=== PATIENT | female | born 1985 | race African-American/Black ===

== ENCOUNTER 2017-03-13 12:19 | Emergency (ER) | payer MEDICAID, OTHER ==
[~2017-03-13] VITALS: Ht 167.6 cm; Wt 75.0 kg
[~2017-03-13 12:19] MED LIST: ALBU8I INH; BUSP10 PO; FLOV220A IN; METR-1 PO; SERO150T PO
[2017-03-13 12:21] VITALS: BP 116/52; PULSE 85; RESP 13; TEMP 99.6; O2SAT 97
== END 2017-03-13 17:11 | disposition left against medical advice (07) ==
LOC: NED 12:19
DX: R10.9 Unspecified abdominal pain (principal)
CPT/HCPCS: 99281